=== PATIENT | male | born 1935 | race Caucasian/White ===

== ENCOUNTER → 2016-08-02 | Day surgery (SDC) | payer MEDICARE, OTHER ==
[~2016-08-02] MED LIST: ALLO300T PO; ASCO500C PO; BISA-42 PO; CRESTOR20 MG PO; FURO-69 PO; IV RINGERS,LACTATED 1000ML 1,000 ML IV SCH; K DUR; LINA145C PO; PROPOFOL 20 ML IV ONE; WARF2TAB7 PO; levoxyl
[2016-08-02 09:21] VITALS: BP 131/51
== END | disposition home or self-care (01) ==
LOC: ENDOS 06:36
PROVIDERS: ATTEND Internal Medicine Gastroenterology
DX: K64.0 First degree hemorrhoids (principal); E03.9 Hypothyroidism, unspecified; I10 Essential (primary) hypertension; E78.00 Pure hypercholesterolemia, unspecified; Z72.89 Other problems related to lifestyle
CPT/HCPCS: 45378; J2704